=== PATIENT | female | born 1970 | race Two or more races ===

== ENCOUNTER 2020-07-02 17:29 | Emergency (ER) | payer OTHER ==
[~2020-07-02] VITALS: Ht 160 cm; Wt 50.8 kg
[2020-07-02 21:11] LABS: Basophils # (auto) 0 10 ^3/uL (0-0.2); Basophils % (auto) 0.3 % (0.0-2.0); Eosinophils # (auto) 0 10 ^3/uL (0-0.8); Hematocrit 39.6 % (36.0-46.0); Hemoglobin 13.8 g/dL (12.2-16.2); Lymphocytes # (auto) 0.9 10 ^3/uL (0.4-5.4); Lymphocytes % (auto) 23.9 % (10.0-50.0); Mean Corpuscular Hemoglobin 32.9 pg (28.0-32.0); Mean Corpuscular Volume 94.2 fL (80.0-100.0); Monocytes # (auto) 0.4 10 ^3/uL (0-1.3); Monocytes % (auto) 11.4 % (0.0-12.0); Neutrophils # (auto) 2.5 10 ^3/uL (1.6-8.6); Neutrophils % (auto) 64.4 % (37.0-80.0); Nucleated Red Blood Cells % 0.1 %; Platelet Count (auto) 129 10^3/uL (140-450); Red Cell Distribution Width 13.4 % (11.8-14.3); White Blood Cell 3.8 10^3/uL (4.4-10.8)
[2020-07-02 21:31] LABS: Albumin 3.5 g/dL (3.4-5.0); Anion Gap 6 (5-15); Blood Urea Nitrogen 11 mg/dL (7-18); Carbon Dioxide 26 mmol/L (21-32); Chloride 104 mmol/L (98-107); Glucose 107 mg/dL (74-106); Potassium 3.6 mmol/L (3.5-5.1); Sodium 136 mmol/L (136-145)
[2020-07-02 21:41] LABS: Alanine Aminotransferase 81 U/L (13-56); Alkaline Phosphatase 114 U/L (45-117); Aspartate Aminotransferase 59 U/L (15-37); BUN/Creatinine Ratio 15.7; Bilirubin, Total 0.2 mg/dL (0.2-1.0); GFR African American 113 mL/min; GFR Non-African American 93 mL/min; Total Protein 7.9 g/dL (6.4-8.2)
[2020-07-02 21:44] VITALS: BP 133/87
[2020-07-02] MEDS ORDERED: ONDANSETRON ODT 4 MG TAB PO ONE (23:30)
== END 2020-07-02 23:49 | disposition home or self-care (01) ==
LOC: ER 17:31
DX: U07.1 COVID-19 (principal); K52.9 Noninfective gastroenteritis and colitis, unspecified
CPT/HCPCS: 36415; 71045; 80053; 84484; 85025; 87426; 93005; 99285; Q0162

== ENCOUNTER 2023-07-30 09:41 | Emergency (ER) | payer MEDICAID, OTHER ==
[~2023-07-30] VITALS: Ht 157.5 cm; Wt 62.6 kg
[2023-07-30 10:40] VITALS: BP 149/77; PULSE 87; RESP 18; TEMP 97.8; O2SAT 96
[2023-07-30] MEDS ORDERED: cefTRIAXone SOD 1,000 MG VL IM ONE (10:45)
[2023-07-30] MEDS ORDERED: LIDO2SOL26 MT (11:15)
[2023-07-30] MEDS ORDERED: AZIT-81 PO (11:15)
== END 2023-07-30 11:20 | disposition home or self-care (01) ==
LOC: ER 09:41
DX: J03.90 Acute tonsillitis, unspecified (principal)
CPT/HCPCS: 96372; 99283; J0696

== ENCOUNTER 2024-02-09 10:23 | Emergency (ER) | payer MEDICAID ==
[~2024-02-09] VITALS: Ht 165.1 cm; Wt 63.0 kg
[~2024-02-09 10:23] MED LIST: AZIT-185 PO; LIDO2SOL26 MT
[2024-02-09] MEDS ORDERED: IBUP-1455 PO (11:03)
[2024-02-09] MEDS ORDERED: CEPH500C PO (11:03)
[2024-02-09 11:21] VITALS: BP 125/77; PULSE 77; RESP 16; TEMP 97.9; O2SAT 96
[2024-02-09] MEDS: TETANUS-DIPTH-ACEL PERTUSSIS 0.5ML SYR Tdap IM ONE (11:25)
== END 2024-02-09 11:30 | disposition home or self-care (01) ==
LOC: ER 10:23
DX: S61.211A Laceration without foreign body of left index finger without damage to nail, initial encounter (principal); Z23 Encounter for immunization; X58.XXXA Exposure to other specified factors, initial encounter; Y93.E8 Activity, other personal hygiene; Y92.89 Other specified places as the place of occurrence of the external cause; Y99.8 Other external cause status
CPT/HCPCS: 12001; 90471; 90715